=== PATIENT | female | born 1960 | race Caucasian/White ===

== ENCOUNTER → 2016-09-02 | Outpatient (CLI) | payer BC | LOC: RAD 17:05 | DX: M54.2 Cervicalgia (principal); M47.892 Other spondylosis, cervical region | CPT/HCPCS: 72040 ==

== ENCOUNTER → 2020-05-09 | Outpatient (CLI) | payer OTHER ==
[~2020-05-09] MED LIST: BACTRIM DS TAB1 EACH PO; BENICAR HCT 401 EAC1 PO; BUSPAR 5MG TABLE5 MG PO; CELEBREX 200MG200 MG PO; COLACE 100MG C100 MG PO; COSENTYX P150 MG/11 SQ; CYCLOBENZAPRINE10 MG PO; CYMBALTA 20 MG20 MG PO; DIOVAN160 MG PO; DIOVAN40 MG PO; DOXYCYCLINE HY100 M2 PO; ECOTRIN81 MG PO; FLONASE 0.05% N16 GM; GLUCOPHAGE500 MG PO; GLUCOTROL 10 MG10 MG PO; IBUPROFEN600 MG PO; IBUPROFEN800 MG PO; JARDIANCE10 MG PO; LEVAQUIN750 MG PO; LEVEMIR100 UNIT/1 SQ; LINZESS145 MCG PO; LIPITOR TAB 2020 MG PO; LORTAB 7.5-3251 EACH PO; METFORMIN ER G500 MG PO; PREDNISONE 10 M10 MG PO; PREDNISONE10 MG PO; PRILOSEC OTC20 MG PO; PROTONIX 40 MG40 M1 PO; TRESIBA FL100 UNIT/1 SC; TRULICITY1.5 MG/0.5 SQ; VICTOZA 1818 MG/3 ML SC; VOLTAREN EC 5050 MG PO
== END ==
LOC: LAB 09:33
DX: E11.9 Type 2 diabetes mellitus without complications (principal)
CPT/HCPCS: 36415; 83036

== ENCOUNTER → 2020-11-05 | Outpatient (CLI) | payer OTHER | LOC: KOH-I 11:41 | DX: R10.9 Unspecified abdominal pain (principal); K59.00 Constipation, unspecified | CPT/HCPCS: 74018 ==

== ENCOUNTER → 2021-01-30 | Outpatient (CLI) | payer OTHER | LOC: KOH-I 10:55 | DX: R10.84 Generalized abdominal pain (principal); K59.00 Constipation, unspecified | CPT/HCPCS: 74018 ==

== ENCOUNTER → 2021-02-06 | Outpatient (CLI) | payer OTHER | LOC: KOH-I 09:47 | DX: R10.84 Generalized abdominal pain (principal) | CPT/HCPCS: 76700 ==

== ENCOUNTER → 2021-03-07 | Outpatient (CLI) | payer OTHER | LOC: CT 10:10 | DX: R93.422 Abnormal radiologic findings on diagnostic imaging of left kidney (principal) | CPT/HCPCS: 36415; 74170; 82565; Q9967 ==

== ENCOUNTER → 2021-03-20 | Day surgery (SDC) | payer OTHER ==
[~2021-03-20] VITALS: Ht 170.2 cm; Wt 102.1 kg
[~2021-03-20] MED LIST changes: +DULOXETINE HCL30 MG PO; +FARXIGA5 MG PO
== END | disposition home or self-care (01) ==
LOC: OR 06:38
DX: K62.5 Hemorrhage of anus and rectum (principal); K31.9 Disease of stomach and duodenum, unspecified; K21.00 Gastro-esophageal reflux disease with esophagitis, without bleeding; K25.9 Gastric ulcer, unspecified as acute or chronic, without hemorrhage or perforation; K29.60 Other gastritis without bleeding; K44.9 Diaphragmatic hernia without obstruction or gangrene; K64.0 First degree hemorrhoids; K64.1 Second degree hemorrhoids; K64.4 Residual hemorrhoidal skin tags; G89.29 Other chronic pain; M79.18 Myalgia, other site; E66.9 Obesity, unspecified; K58.1 Irritable bowel syndrome with constipation; I10 Essential (primary) hypertension; R11.0 Nausea; E11.9 Type 2 diabetes mellitus without complications; Z88.1 Allergy status to other antibiotic agents; Z88.2 Allergy status to sulfonamides; Z80.0 Family history of malignant neoplasm of digestive organs; Z87.891 Personal history of nicotine dependence; Z90.711 Acquired absence of uterus with remaining cervical stump; Z20.822 Contact with and (suspected) exposure to COVID-19
CPT/HCPCS: 82962; J2704; J7040

== ENCOUNTER → 2021-12-19 | Outpatient (CLI) | payer OTHER | LOC: EMI 12:59 | DX: M50.01 Cervical disc disorder with myelopathy, high cervical region (principal); M43.23 Fusion of spine, cervicothoracic region | CPT/HCPCS: 72141 ==